=== PATIENT | female | born 2000 | race Caucasian/White ===

== ENCOUNTER 2023-10-24 17:09 | Emergency (ER) | payer BC, SELFPAY ==
--- NOTE | ~2023-10-24 | CT_ITS ---
EXAMINATION: CT brain wo con DATE: 10/24/2023 21:29 INDICATION: syncope, headache . TECHNIQUE: Computed tomography (CT) of the head was performed without intravenous contrast. The mA wa s adjusted according to patient size. Iterative reconstruction technique was employed. The dose-lengt h product was 412.06 mGy-cm. COMPARISON: None. FINDINGS: No acute intracranial hemorrhage or extra-axial fluid collection. No hydrocephalus, mass, or herniation. No acute ischemic infarct. Unremarkable dural venous sinus attenuation. No acute osseous abnormality. The aerated spaces are clear. IMPRESSION: No acute intracranial process. Reviewed, dictated and finalized at location K.
--- NOTE | ~2023-10-24 | XR_ITS ---
EXAMINATION: XR chest 2V Exam Date/Time: 10/24/2023 21:15 CDT HISTORY: NEAR SYNCOPE Comparison: None. RESULT: Lines, tubes, and devices: Screw and plate hardware fixation of the left distal clavicle. Lungs and pleura: Clear. Cardiomediastinal silhouette: Normal. Other: No acute osseous or upper abdominal finding. IMPRESSION: No acute cardiopulmonary process. Reviewed, dictated and finalized at location K.
--- NOTE | ~2023-10-24 | CT_ITS ---
EXAMINATION: CT cervical spine wo con DATE: 10/24/2023 21:29 INDICATION: neck pain, syncope TECHNIQUE: Computed tomography (CT) of the cervical spine was performed without intravenous contrast. Automated exposure control and iterative reconstruction technique were employed. The dose-length pro duct was 412.06 mGy-cm. COMPARISON: None. FINDINGS: Vertebral Body Alignment: Intact. Mild reversal of the normal cervical lordosis centered at C5-6. Craniocervical and atlantoaxial alignment: Moderate degenerative change. Alignment intact. Osseous structures/fracture: No evidence of a lytic or blastic process in the visualized spine. No e vidence of acute fracture. Cervical soft tissues: The paraspinal soft tissues planes are maintained. Degenerative changes: No significant degenerative changes. IMPRESSION: No acute fracture or traumatic malalignment in the cervical spine. Reviewed, dictated and finalized at location K.
[2023-10-24 17:30] VITALS: BP 111/71; PULSE 61; RESP 16; TEMP 36.4; O2SAT 100
--- NOTE | 2023-10-24 19:41 | ECG_ITS ---
SEE SCANNED COPY FOR CONFIRMED REPORT MTDD
[2023-10-24 20:53] LABS: Basophils Absolute Auto 0.1 K/mm3 (0.0-0.1); Basophils Percent Auto 1.1 % (0.2-1.2); Eosinophils Absolute Auto 0.2 K/mm3 (0-0.3); Hematocrit 40.9 % (37.0-47.0); Hemoglobin 13.8 g/dL (12.0-15.0); Immature Granulocyte Absolute 0.01 K/mm3 (0.00-0.031); Immature Granulocyte Percent A 0.2 % (0-0.5); Lymphocytes Absolute Auto 3.02 K/mm3 (0.9-3.2); Mean Corpuscular HGB Conc 33.7 g/dl (32-36); Mean Corpuscular Hemoglobin 29.6 pg (26-34); Mean Corpuscular Volume 87.8 fl (80-100); Mean Platelet Volume 11.6 fl (7.4-10.4); Monocytes Absolute Auto 0.4 K/mm3 (0.1-0.6); Monocytes Percent Auto 5.9 % (2.6-8.5); Neutrophils Absolute Auto 2.8 K/mm3 (1.3-6.7); Neutrophils Percent Auto 42.8 % (45.5-73.1); Platelet Count Result 225 k/mm3 (150-375); Red Blood Count 4.66 M/mm3 (4.2-5.4); Red Cell Distribution Width 12.5 % (11.5-14.5); White Blood Count 6.4 K/mm3 (4.5-10.0)
--- NOTE | 2023-10-24 21:00 | ED.SYNCOPE ---
HPI - Syncope General Chief Complaint: Syncope Stated Complaint: dizziness, syncope Time Seen by Provider: 10/24/23 20:29 History of Present Illness HPI narrative: 23-year-old female presents to the emergency department for intermittent dizziness for 3 days and syncope today. Patient states she becomes dizzy when she was from sitting to standing position when she moves her head quickly. She describes as lightheaded and feels like she is going to pass out. Today she got up to let her dog outside when she said she became. Dizzy, vision went black and she woke up on the floor. She is unsure if she hit her head but is reporting headache and neck pain. She is also reporting some pain to her right upper back that is worse with inspiration and palpation. She denies midline back pain or other injuries acquired. She denies chest pain, shortness of breath, focal numbness or weakness, abdominal pain, vomiting or diarrhea. She is reporting some nausea. Denies emesis, cough or congestion. States she has never had this happen before. Denies familial history of sudden cardiac . She has an IUD in place. Related Data Allergies Allergy/AdvReac Type Severity Reaction Status Date / Time No Known Allergies Allergy Verified 10/24/23 21:13 Review of Systems Review of Systems: CONSTITUTIONAL: Denies fever, chills, or sweats. EYES: Denies visual changes, redness, or discharge. ENT: Denies rhinorrhea, congestion, sore throat, or otalgia. CARDIOVASCULAR: Denies chest pain, palpitations, or edema. RESPIRATORY: Denies cough or dyspnea. GASTROINTESTINAL: Denies abdominal pain, nausea, vomiting, or diarrhea. GENITOURINARY: Denies dysuria or hematuria. SKIN: Denies rash or itching. MUSCULOSKELETAL: See HPI NEUROLOGIC: See HPI PSYCHIATRIC: Denies anxiety or depression. Exam Narrative: GENERAL: Well-appearing, well-nourished, and in no acute distress. HEAD: Normocephalic, atraumatic. EYES: PERRLA and EOMI. ENT: Nares clear, no rhinorrhea or epistaxis. Mucous membranes moist. Bilateral TMs are ospina nonbulging with normal canals. NECK: Mild midline spinal tenderness without step-offs or deformities Back: No midline thoracolumbar spinous tenderness, step-offs or deformities. Tenderness to the right paraspinous muscles without overlying skin changes. CHEST: Clear to auscultation. No respiratory distress. HEART: Regular rate and rhythm. No murmur heard. Normal peripheral pulses. ABDOMEN: Soft, nontender, nondistended, normal active bowel sounds. EXTREMITIES: Normal range of motion. No edema. No tenderness to upper or lower extremities. SKIN: Warm, dry, no rash. NEURO: No focal deficits. Alert and oriented x3. Moving all extremities spontaneously. Cranial nerves 2-12 intact. Course Vital Signs Vital signs: Vital Signs Temperature 97.6 F 10/24/23 17:30 Pulse Rate 61 10/24/23 17:30 Respiratory Rate 16 10/24/23 17:30 Blood Pressure 111/71 10/24/23 17:30 Pulse Oximetry 100 10/24/23 17:30 Oxygen Delivery Room Air 10/24/23 17:30 Temperature 97.6 F 10/24/23 17:30 Pulse Rate 92 10/25/23 00:20 Respiratory Rate 14 10/24/23 21:38 Blood Pressure 109/82 10/25/23 00:20 Pulse Oximetry 100 10/24/23 21:38 Oxygen Delivery Room Air 10/24/23 17:30 MDM - Syncope MDM Narrative Medical decision making narrative: 23-year-old female presents to emergency department for intermittent dizziness for 3 days with a syncopal episode today. Triage vitals stable. Patient is well-appearing and nontoxic on exam. No evidence of trauma. See exam above. CBC without leukocytosis or anemia. Chemistries are unremarkable. UA with nitrites, no pyuria or bacteria, patient does not have symptoms of UTI. is negative. Chest x-ray shows no acute cardiopulmonary abnormality. CT brain shows no intracranial abnormality. CT cervical spine without acute traumatic fracture or malalignment. D-dimer is 0.31, wells score
[2023-10-24 21:04] LABS: Alanine Aminotransferase 30 U/L (6-35); Albumin Level 4.8 g/dL (3.5-5.1); Alkaline Phosphatase 71 U/L (38-126); Anion Gap 9 mmol/L (4-12); Aspartate Amino Transferase 28 U/L (14-36); Bilirubin,Total 0.5 mg/dL (0.2-1.3); Blood Urea Nitrogen 12 mg/dL (7-17); Calcium 9.9 mg/dL (8.4-10.2); Carbon Dioxide 22 mmol/L (22-30); Chloride 106 mmol/L (98-107); Estimated CRCL calculation 103 ml/min; Estimated Glomerular Filt Rate > 60; Glucose 86 mg/dL (65-110); Potassium 4.1 mmol/L (3.4-5.0); Sodium 137 mmol/L (137-145)
[2023-10-24] MEDS: SODIUM CHLORIDE 0.9% IV 1,000 ML 999 ML IV CONT ×2 (21:14→23:20)
[2023-10-24 21:28] LABS: INR 0.9; Partial Thromboplastin Time 29.3 Seconds (22.3-36.8); Prothrombin Time 12.7 Seconds (11.1-14.7)
[2023-10-24 21:37] LABS: Appearance Urine Turbid (Clear); Bacteria Urine Rare /hpf; Bilirubin Urine Negative (Negative); Blood Urine Negative (Negative); Color Urine Dark Yellow (Yellow); Glucose Urine UA Negative (Negative); Ketones Urine Negative (Negative); Leukocyte Esterase Ur Negative LEU/UL (Negative); Nitrate Urine Positive (Negative); Non Pathogenic Casts 0-2; Protein Urine Negative (Negative); RBC Urine 0-2 /hpf (0-2); Specific Grav Ur 1.019 (1.001-1.035); Squamous Epithelial Cell Urine None Seen /hpf (Few); WBC Urine 0-5 /hpf (0-3)
[2023-10-24 21:38] VITALS: BP 109/79; PULSE 72; RESP 14; O2SAT 100
[2023-10-24 21:44] LABS: D Dimer 0.31 ug/mL (<0.48)
[2023-10-24 21:46] LABS: Add Urine Microscopic? YES
[2023-10-24] MEDS: ONDANSETRON INJ 4 MG/2 ML VIAL IV PUSH (22:02)
[2023-10-24] MEDS: KETOROLAC 15 MG/ML VIAL (*BKC) IV PUSH (22:03)
[2023-10-25 00:17] VITALS: BP 104/67; PULSE 78
[2023-10-25 00:19] VITALS: BP 94/81; PULSE 87
[2023-10-25 00:20] VITALS: BP 109/82; PULSE 92
== END 2023-10-25 00:51 | disposition home or self-care (01) ==
PROVIDERS: Emergency Medicine; Emergency Provider Physician Assistant
DX: R42 Dizziness and giddiness (principal); R55 Syncope and collapse; Z97.5 Presence of (intrauterine) contraceptive device
CPT/HCPCS: 36415; 70450; 71046; 72125; 80053; 81001; 81025; 83735; 85025; 85380; 85610; 85730; 93005; 96361; 96374; 96375; 99284; J1885; J2405; J7030